=== PATIENT | female | born 1940 | race Caucasian/White ===

== ENCOUNTER 2016-12-06 15:54 | Emergency (ER) | payer MEDICARE ==
[2016-12-06 16:09] VITALS: BP 154/74
[2016-12-06] MEDS ORDERED: diPHENhydraMINE PO* 25 MG PO ONE ×2 (16:16→17:20)
[2016-12-06] MEDS ORDERED: predniSONE TAB* 20 MG PO ONE (17:20)
--- NOTE | 2016-12-06 17:21 | UC ---
Skin Complaint HPI - HPI Summary HPI Summary: 76 yo female presents with 12 yellow jacket stings itching and pain no throat tightness or SOB no hx anaphylatic reactions - History of Current Complaint Chief Complaint: UCSkin Time Seen by Provider: 12/06/16 17:06 Stated Complaint: BEE STING Hx Obtained From: Patient Onset/Duration: Sudden Onset, Lasting Hours Onset Severity: Moderate Current Severity: Moderate Pain Intensity: 4 Pain Scale Used: 0-10 Numeric Location: Other - arms/trunk Character: Swelling, Pruritus, Pain, Redness, Raised Aggravating: Nothing Alleviating: Nothing Associated Signs & Symptoms: Positive: Nausea, Vomiting Related History: Insect Bite/Sting - 12 - Allergy/Home Medications Allergies/Adverse Reactions: Allergies Allergy/AdvReac Type Severity Reaction Status Date / Time Amoxicillin Allergy Hives Verified 12/06/16 16:11 Dextromethorphan Allergy Hives Verified 12/06/16 16:11 Doxycycline Allergy Hives Verified 12/06/16 16:11 Morphine Allergy Hives Verified 12/06/16 16:11 Home Medications: Home Medications Fluoxetine HCl [Prozac] 10 mg PO BEDTIME 12/06/16 [History Confirmed 12/06/16] Review of Systems Constitutional: Negative Skin: Rash Eyes: Negative ENT: Negative Respiratory: Negative Cardiovascular: Negative Gastrointestinal: Negative Genitourinary: Negative Motor: Negative Neurovascular: Negative Musculoskeletal: Negative Neurological: Negative Psychological: Negative Is Patient Immunocompromised?: No All Other Systems Reviewed And Are Negative: Yes PMH/Surg Hx/FS Hx/Imm Hx Previously Healthy: Yes - HX GCA - Surgical History Surgical History: Yes Surgery Procedure, Year, and Place: PARTIAL HYSTERECTOMY. COMPLETE HYSTERECTOMY. CHOLECYSTECTOMY. THYROIDECTOMY. VEIN STRIPPING - Social History Alcohol Use: Rare Substance Use Type: None Smoking Status (MU): Never Smoked Tobacco Physical Exam Triage Information Reviewed: Yes Appearance: Well-Appearing, No Pain Distress, Well-Nourished Vital Signs: Initial Vital Signs Temp 98.3 F 12/06/16 15:59 Pulse 85 12/06/16 15:59 Resp 20 12/06/16 15:59 BP 154/74 12/06/16 15:59 Pulse Ox 98 12/06/16 15:59 Vital Signs Reviewed: Yes Eyes: Positive: Conjunctiva Clear ENT: Positive: Hearing grossly normal. Negative: Nasal congestion, Nasal drainage, Trismus, Muffled/hoarse voice Neck: Positive: Supple, Nontender, No Lymphadenopathy Respiratory: Positive: Lungs clear, Normal breath sounds, No respiratory distress, No accessory muscle use Cardiovascular: Positive: RRR, No Murmur Abdomen Description: Positive: Nontender, No Organomegaly. Negative: CVA Tenderness (R), CVA Tenderness (L) Neurological: Positive: Alert Psychological Exam: Normal Skin Exam: Other - 12 sting sites each with 4-8 cm of surrounding erthyema/no hives Course/Dx - Diagnoses Provider Diagnoses: local reaction to insect stings Discharge - Discharge Plan Condition: Stable Disposition: HOME Prescriptions: Prednisone [Deltasone] 20 mg PO DAILY #4 tab Patient Education Materials: Insect Bite or Sting (ED) Referrals: Barbara Kirkland MD [Primary Care Provider] - 3 Days (if not better) Additional Instructions: cool compresses benadryl 25 mg 1-2 tabs 4x day as needed for itching recheck for new or worsening symptoms
== END 2016-12-06 17:34 | disposition home or self-care (01) ==
LOC: UCCORT 15:54
DX: T63.441A Toxic effect of venom of bees, accidental (unintentional), initial encounter (principal); Y92.9 Unspecified place or not applicable
CPT/HCPCS: 99212; A9270-GY; G0463; J7512